=== PATIENT | male | born 1965 | race Caucasian/White ===

== ENCOUNTER → 2018-08-21 15:05 | Outpatient (CLI) | payer OTHER, SELFPAY | DX: Z23 Encounter for immunization (principal) | CPT/HCPCS: 90471; 90686 ==

== ENCOUNTER → 2019-08-27 11:01 | Outpatient (CLI) | payer OTHER, SELFPAY | PROVIDERS: PCP Family Medicine | DX: Z23 Encounter for immunization (principal) | CPT/HCPCS: 90471; 90686 ==

== ENCOUNTER → 2019-09-14 16:21 | Outpatient (CLI) | payer OTHER, SELFPAY ==
--- NOTE | 2019-09-14 16:24 | DI.RAD.S_ITS ---
PROCEDURE: XR CHEST 2V INDICATIONS: Productive cough, r/o aspiration TECHNIQUE: 2 views of the chest were acquired. COMPARISON: None. FINDINGS: Surgical changes and devices: None. Lungs and pleura: Lungs are clear. No pleural effusions or pneumothorax. Mediastinum: Mediastinal contours are normal. Heart size is normal. Bones and chest wall: No suspicious bony abnormalities. Soft tissues appear unremarkable. IMPRESSION: No acute process. Dictated by: Tila Langston M.D. on 09/14/2019 at 16:35 Approved by: Tila Langston M.D. on 09/14/2019 at 16:36
== END ==
PROVIDERS: PCP Family Medicine; Visit Provider Physician Assistant
DX: R05 Cough (principal)
CPT/HCPCS: 71046

== ENCOUNTER → 2021-09-03 07:43 | Outpatient (CLI) | payer OTHER, SELFPAY ==
--- NOTE | 2021-09-03 07:46 | DI.RAD.S_ITS ---
PROCEDURE: XR SHOULDER RT MIN 2V INDICATIONS: RIGHT SHOULDER PAIN TECHNIQUE: 3 views of the shoulder were acquired. COMPARISON: None. FINDINGS: Bones: No fractures or dislocations. No suspicious bony lesions. Visualized ribs appear intact. Soft tissues: No suspicious soft tissue calcifications. IMPRESSION: No acute abnormality. Dictated by: Prashant House M.D. on 09/03/2021 at 8:15 Approved by: Prashant House M.D. on 09/03/2021 at 8:15
--- NOTE | 2021-09-03 07:46 | DI.RAD.S_ITS ---
PROCEDURE: XR CERVICAL SPINE 4V OR 5V INDICATIONS: NECK PAIN TECHNIQUE: 5 views of the cervical spine acquired. COMPARISON: None. FINDINGS: Bones: No fractures or dislocations to the T1 level. Oblique images demonstrate no bony foraminal stenoses. Soft tissues: No prevertebral soft tissue swelling. IMPRESSION: No significant abnormality. Dictated by: Prashant House M.D. on 09/03/2021 at 8:14 Approved by: Prashant House M.D. on 09/03/2021 at 8:15
--- NOTE | 2021-09-03 10:18 | DI.RAD.S_ITS ---
PROCEDURE: XR LUMBAR SPINE MIN 4V INDICATIONS: Back and left hip pain TECHNIQUE: 4 views of the lumbar spine were acquired, including bilateral oblique views. COMPARISON: None. FINDINGS: Bones: No acute fracture. Multilevel degenerative endplate sclerosis and spurring. Diffuse facet arthropathy. Mild narrowing of the L5-S1 disc space. Soft tissues: Overlying bowel gas pattern is normal. No suspicious soft tissue calcifications. Oblique images: No pars defects. IMPRESSION: Mild L5-S1 disc degeneration and diffuse facet arthropathy. Dictated by: Pj Corley M.D. on 09/03/2021 at 11:36 Approved by: Pj Corley M.D. on 09/03/2021 at 11:38
== END ==
PROVIDERS: PCP Family Medicine; Referring Provider Physical Medicine & Rehabilitation; Visit Provider Physical Medicine & Rehabilitation
DX: M54.2 Cervicalgia (principal); M25.511 Pain in right shoulder; M75.41 Impingement syndrome of right shoulder; M70.61 Trochanteric bursitis, right hip; M70.62 Trochanteric bursitis, left hip; M47.817 Spondylosis without myelopathy or radiculopathy, lumbosacral region; M51.37 Other intervertebral disc degeneration, lumbosacral region; M47.812 Spondylosis without myelopathy or radiculopathy, cervical region
CPT/HCPCS: 72050; 72110; 73030; 99214

== ENCOUNTER → 2022-02-15 10:42 | Outpatient (CLI) | payer OTHER, SELFPAY ==
--- NOTE | 2022-02-15 10:44 | DI.MRI.S_ITS ---
PROCEDURE: MR CERVICAL SPINE WO CON INDICATIONS: Cervical radiculopathy TECHNIQUE: Noncontrast sagittal T1 spin echo and T2 fast spin echo, sagittal STIR, foraminal oblique sagittal T2 fast spin echo, and axial gradient echo or T2 fast spin echo through the cervical spine. COMPARISON: None. FINDINGS: Image quality: Excellent. Alignment and Curvature: There is normal bony alignment. Bone Marrow: Marrow demonstrates normal overall signal. Spinal Cord: Visualized spinal cord has normal size and signal. No cerebellar tonsillar herniation. Paraspinous Soft Tissues: No paravertebral masses. Prevertebral soft tissues are normal in thickness. C2-C3: No canal stenosis or foraminal stenosis. C3-C4: Posterior annulus tear plus very minimal central posterior disc protrusion. AP diameter of the canal is 10.6 mm. Mild bilateral facet hypertrophy. Mild bilateral foraminal narrowing. C4-C5: Minimal disc bulge. No canal stenosis. Mild bilateral uncovertebral joint hypertrophy and facet hypertrophy. Mild bilateral foraminal stenosis. C5-C6: Diffuse posterior disc plus osteophyte with bilateral uncovertebral joint hypertrophy. Qiue-jg-etgjcorx canal stenosis. No significant right foraminal narrowing. Moderate left foraminal narrowing with flattening deformity on the exiting left C6 nerve root. C6-C7: Disc bulge. Mild bilateral uncovertebral joint hypertrophy. Moderate left foraminal narrowing with mild flattening deformity on the exiting left C7 nerve root. C7-T1: No canal stenosis or foraminal stenosis. IMPRESSION: 1. Cervical spondylitic change. 2. The most significant findings are at C5-C6, where there is [id number] canal stenosis and moderate left foraminal stenosis. 3. There is also moderate left foraminal stenosis at C6-C7. Dictated by: Min Francois M.D. on 02/15/2022 at 11:31 Approved by: Min Francois M.D. on 02/15/2022 at 11:37
--- NOTE | 2022-02-15 10:44 | DI.MRI.S_ITS ---
PROCEDURE: MR LUMBAR SPINE WO CON INDICATIONS: Left lumbar radiculopathy TECHNIQUE: Noncontrast sagittal T1 spin echo and T2 fast echo, sagittal STIR, and T2 fast spin echo through the lumbar spine. In cases with scoliosis, additional coronal T2 fast spin echo may be performed. COMPARISON: None. FINDINGS: Normal lumbar vertebral body height and alignment. No suspicious focal marrow signal abnormality or bone marrow edema. Normal position and appearance of the conus. Regional soft tissues are normal. T12-L1: No spinal canal or neural foraminal stenosis. L1-L2: No spinal canal or neural foraminal stenosis. L2-L3: No spinal canal or neural foraminal stenosis. L3-L4: Mild-moderate at neural foraminal narrowing on the left due to foraminal component of a diffuse disc bulge and facet hypertrophy. No neural foraminal narrowing on the right. No spinal canal stenosis.. L4-L5: Disc desiccation, disc height loss, and diffuse disc bulge with an associated annular fissure (series 4, image 8). No spinal canal narrowing or mass effect upon the traversing L5 nerve roots. Foraminal components of the disc bulge and facet hypertrophy combine to produce mild-moderate bilateral neural foraminal stenosis. L5-S1: Disc desiccation, disc height loss, and diffuse disc bulge with an associated broad-based posterior disc protrusion and associated annular fissure. Disc material abuts but does not displace the adjacent S1 nerve roots. No spinal canal or neural foraminal stenosis. IMPRESSION: Degenerative changes of the L4-L5 and L5-S1 discs, including annular fissures. These represent potential sources of nonradicular axial back pain. Mild-moderate neural foraminal stenosis on the left at L3-L4 and L4-L5. Correlate for any corresponding left L3 or L4 radicular symptoms. Dictated by: Dallas Mcgovern M.D. on 02/17/2022 at 16:22 Approved by: Dallas Mcgovern M.D. on 02/17/2022 at 16:26
== END ==
PROVIDERS: PCP Family Medicine; Referring Provider Physical Medicine & Rehabilitation; Visit Provider Physical Medicine & Rehabilitation
DX: M47.22 Other spondylosis with radiculopathy, cervical region (principal); M47.26 Other spondylosis with radiculopathy, lumbar region; M47.27 Other spondylosis with radiculopathy, lumbosacral region; M48.02 Spinal stenosis, cervical region; M48.061 Spinal stenosis, lumbar region without neurogenic claudication; M48.07 Spinal stenosis, lumbosacral region
CPT/HCPCS: 72141; 72148

== ENCOUNTER 2022-03-14 08:06 | Outpatient (CLI) | payer OTHER, SELFPAY ==
[2022-03-14] VITALS (9 sets, daily range): BP systolic 113–131; BP diastolic 67–84; PULSE 69–80; RESP 14–20; TEMP 36.6; O2SAT 97–99
[2022-03-14 08:47] LABS: COVID19 -Nasal RAPID Negative (Negative)
--- NOTE | 2022-03-14 09:00 | DI.RAD.S_ITS ---
PROCEDURE: PAIN C/T INTERLAMINAR INJECT INDICATIONS: SPINAL STENOSIS COMPARISON: [facility], CR, XR CERVICAL SPINE 4V OR 5V, 09/03/2021, 7:42. [facility], MR, MR CERVICAL SPINE WO CON, 02/15/2022, 10:50. FINDINGS: Fluoroscopic spot filming was performed to verify placement of a spinal needle at the C6-C7 level, as labeled on the films. Appropriate location of the needle tip was confirmed by injection of iodinated contrast. IMPRESSION: No significant intraprocedural abnormality. Dictated by: Shukri Newsome M.D. on 03/14/2022 at 9:40 Approved by: Shukri Newsome M.D. on 03/14/2022 at 9:41
[2022-03-14] MEDS: MIDAZOLAM 2 MG/2 ML VIAL IV (09:37)
[2022-03-14] MEDS: IOPAMIDOL 15 ML VIAL 3 ML INJ (09:44)
[2022-03-14] MEDS: BUPIVACAINE 0.25% (PF) VIAL 2 ML INJ (09:45)
[2022-03-14] MEDS: DEXAMETHASONE 10 MG/ML VIAL 30 MG INJ (09:45)
--- NOTE | 2022-03-14 09:52 | P.PCN_ITS ---
Date/Time/Diagnoses Date of procedure: 03/14/22 Time of procedure: 09:52 Pre-procedure diagnosis: 1. CERVICAL STENOSIS, 2. CERVICAL HNP WITH UPPER EXTREMITY RADICULAR FEATURES Post-procedure diagnosis: same Procedure Notes Procedure: 1. FLUORSCOPICALLY GUIDED CONTRAST CONTROLLED INTERLAMINAR EPIDURAL STEROID INJECTION - C6/7 TL YAYA Indications: Earl is referred by Dr. Fernandez for treatment of Cervical HNP with Upper Extremity Paresthesias. Physician: Kahlil Sheriff Total Fluoroscopy time (seconds): 27 Total sedation minutes: 14 Complications: none Procedure in detail & Post-procedure care: FINDINGS Cervical Stenosis due to disc deterioration and nerve root irritation and nerve root irritation DESCRIPTION OF PROCEDURE Fluoroscopically guided, contrast-controlled C6/7 translaminar epidural steroid injection with conscious sedation. Following review of allergy and review of potential side effects and complications, including, but not necessarily limited to, infection, allergic reaction, local tissue breakdown, temporary as well as permanent nerve injury, stroke, paralysis, and possible , the patient indicated that patient understood and agreed to proceed. An informed consent document was signed by the patient, witnessed by a nurse, and placed in the patient's chart. Additionally, other treatment options including modalities, medications, and physical therapy were reviewed with the patient. After review of previous anaesthesic history and IV conscious sedation the patient was deemed safe to proceed with today?s procedure with IV conscious jon tion as ASA class II designation. Safety time-out was performed to confirm patient ID, procedure to be performed and site of procedure. IV sedation was accomplished with a combination of 4mg of Versed administered by the RN after DO order, titrated to patient comfort during the course of the procedure while the patient remained responsive to all verbal commands. In the prone position, following sterile prep and drape of the cervical region, the C6/7 translaminar space was identified fluoroscopically. The skin was anesthetized via a 25-gauge 1.5-inch needle with 1% lidocaine solution. At this point, a 25-gauge, 2.5-inch short bevel spinal needle was atraumatically introduced and advanced under fluoroscopic guidance into epidural space at the C6/7 translaminar space. Depth was confirmed on lateral view. Radiological data, including multiple fluoroscopic views of the cervical spine, reveal a spinal needle at the C6/7 translaminar space. Lateral views then show placement of the needle in the epidural space. Subsequent views show contrast material flowing superiorly and inferiorly in the epidural space. DSA fluoroscopy with live contrast injection, once again, confirmed no vascular or intrathecal uptake. At this point, using loss of resistance technique with saline and air, the epidural space was entered. Following negative aspiration, injection of approximately 1.5 cc of Isovue-200 with live fluoroscopy in the AP view confirmed epidural flow in the epidural space without vascular or intrathecal uptake observed. Subsequently, a test dose of 1cc of 1% lidocaine solution was injected and patient was observed for two minutes without signs or symptoms of complications, including abdominal pain, shortness of breath, bilateral upper or lower extremity weakness, nausea and vomiting, prior to steroid injection. At this point, 3cc or 30mg of dexamethasone was then injected without incident. The patient tolerated the procedure well without signs or symptoms of comp lications prior to being transferred to the recovery area for further monitoring, The patient was then transferred to the recovery area where they were observed for an appropriate period of time after the injection. The patient reported a VAS score of 6 prior to the procedure and a post-procedure VAS of 0. POST OP INSTRUCTIONS The patient was provided a Pain Log to continue to record their response to the target-specific procedure prior to follow-up visit with the referring provider. Additionally, specific post-injection care instructions and a contact number to our office were provided if concerns arise regarding possible complications associated with the procedure are suspected.
== END 2022-03-14 11:18 | disposition home or self-care (01) ==
LOC: RAD 08:07
PROVIDERS: PCP Family Medicine; Referring Provider Physical Medicine & Rehabilitation; Visit Provider Physical Medicine & Rehabilitation
DX: M48.02 Spinal stenosis, cervical region (principal); M50.123 Cervical disc disorder at C6-C7 level with radiculopathy; Z20.822 Contact with and (suspected) exposure to COVID-19
CPT/HCPCS: 62321; 87635; 99152; J1100; J2250

== ENCOUNTER 2022-08-27 10:15 | Outpatient (CLI) | payer OTHER, SELFPAY ==
[2022-08-27] VITALS (9 sets, daily range): BP systolic 109–135; BP diastolic 65–85; PULSE 53–68; RESP 14–24; TEMP 36.2; O2SAT 98–100
--- NOTE | 2022-08-27 10:16 | DI.RAD.S_ITS ---
PROCEDURE: PAIN L/S FACET INJ/BLK 1ST GROVER COMPARISON: None. INDICATIONS: SPONDYLOSIS FINDINGS: Fluoroscopic images demonstrate facet injection bilaterally at L4, L5, and S1. IMPRESSION: Fluoroscopic facet injections. Dictated by: Wendy Romero M.D. on 08/27/2022 at 13:27 Approved by: Wendy Romero M.D. on 08/27/2022 at 13:29
[2022-08-27] MEDS: MIDAZOLAM 2 MG/2 ML VIAL IV ×2 (11:23→11:30)
[2022-08-27] MEDS: IOPAMIDOL 15 ML VIAL 3 ML INJ (11:28)
[2022-08-27] MEDS: LIDOCAINE 1% 20 ML INJ (11:28)
[2022-08-27] MEDS: BUPIVACAINE 0.5% (PF) VIAL 5 ML INJ (11:28)
--- NOTE | 2022-08-27 11:43 | PM.PROC.IR.1 ---
Date/Time/Diagnoses Date of procedure: 08/27/22 Time of procedure: 11:43 Pre-procedure diagnosis: 1. FACET ARTHROPATHY Post-procedure diagnosis: same Procedure Notes Procedure: 1. BILATERAL- L4, L5 and S1 DIAGNOSTIC MB BLOCKS with LA Anesthetic Indications: Earl is referred by Dr. Fernandez for treatment of Bilateral Axial LBP. Physician: Kahlil Sheriff Total Fluoroscopy time (seconds): 11 Total sedation minutes: 14 Complications: none Procedure in detail & Post-procedure care: DESCRIPTION OF PROCEDURE Fluoroscopically guided, contrast-controlled bilateral L4, L5 and S1 medial branch blocks with 0.5cc of 0.5% Marcaine. Following review of allergy and review of potential side effects and complications, including, but not necessarily limited to, infection, allergic reaction, local tissue breakdown, nerve injury, paralysis, stroke and possible , the patient indicated that the patient understood and agreed to proceed. An informed consent document was signed by the patient, witnessed by a nurse, and placed in the patient's chart. After review of previous anaesthesic history and IV conscious sedation the patient was deemed safe to proceed with today's procedure with IV conscious sedation as ASA class II designation. Safety time-out was performed to confirm patient ID, procedure to be performed and site of procedure. IV sedation was accomplished with a combination of 4mg of Versed was administered by the RN after DO order, titrated to patient comfort during the course of the procedure while the patient remained responsive to all verbal commands In the prone position, following sterile prep and drape of the lumbar region, the right L4, L5 and S1 anatomical location of the medial branch of the dorsal ramus was identified fluoroscopically. Subsequently an anesthetic skin wheal using 1% lidocaine solution was initiated at each of the anatomical spots. Subsequently then a 22-gauge 3.5-inch spinal needle was atraumatically introduced and advanced under fluoroscopic guidance at each of the corresponding sites at the right L4, L5 and S1 MB. After negative aspiration, 0.2cc of Isovue 200 was injected, confirming placement without vascular or intrathecal uptake. Subsequently then 0.5cc of 0.5% Marcaine solution was injected at each of the corresponding sites at the right L4, L5 and S1 medial branch locations. The identical procedure was replicated on the left. The patient tolerated the procedure well without signs or symptoms of complications prior to transfer to the recovery area continued monitoring without incident. Post-procedure, the patient was monitored initiating provocative activities to measure the amount of relief from block of the facetogenic pain. The patient reported a VAS of 7 prior to the procedure and a post-procedure VAS of 1. It has been a pleasure to assist in the diagnostic and therapeutic care of your patient. POST OP INSTRUCTIONS The patient was provided with a Pain Log to complete over the next several hours and subsequent days prior to the patient's follow up with the ordering physician. If the patient has insurance service representative relief to the solution applied, then they may be a candidate for medial branch rhizotomy. The patient is aware, was provided, once again, with a Pain Log and will follow up with the referring physician for review and clinical correlation
== END 2022-08-27 12:05 | disposition home or self-care (01) ==
LOC: RAD 10:15
PROVIDERS: PCP Family Medicine; Referring Provider Physical Medicine & Rehabilitation; Visit Provider Physical Medicine & Rehabilitation
DX: M47.816 Spondylosis without myelopathy or radiculopathy, lumbar region (principal); M47.817 Spondylosis without myelopathy or radiculopathy, lumbosacral region
CPT/HCPCS: 64493; 64494; 99152; J2250

== ENCOUNTER → 2022-12-30 12:06 | Outpatient (CLI) | payer OTHER, SELFPAY ==
--- NOTE | 2022-12-30 12:06 | DI.RAD.S_ITS ---
PROCEDURE: XR HIP W PEL IF DONE GROVER MIN 4V INDICATIONS: Left hip pain TECHNIQUE: AP pelvis with lateral views of each hip. COMPARISON: None. FINDINGS: Bones: No acute fractures or dislocations. Pelvic ring appears intact. No suspicious bony lesions. Mild degenerative spurring of the lateral acetabula bilaterally. Soft tissues: The visualized bowel gas pattern is normal. No suspicious soft tissue calcifications. IMPRESSION: Mild symmetric bilateral hip osteoarthrosis. Approved by: Jj Moscoso M.D. on 12/30/2022 at 13:49
== END ==
PROVIDERS: PCP Family Medicine; Referring Provider Physical Medicine & Rehabilitation; Visit Provider Physical Medicine & Rehabilitation
DX: M16.0 Bilateral primary osteoarthritis of hip (principal); M24.152 Other articular cartilage disorders, left hip; M17.0 Bilateral primary osteoarthritis of knee; M77.01 Medial epicondylitis, right elbow; M75.41 Impingement syndrome of right shoulder; M47.26 Other spondylosis with radiculopathy, lumbar region; M47.812 Spondylosis without myelopathy or radiculopathy, cervical region; M50.222 Other cervical disc displacement at C5-C6 level; Z98.890 Other specified postprocedural states
CPT/HCPCS: 20611; 73522; 99215; J1040